=== PATIENT | male | born 1965 | race Caucasian/White ===

== ENCOUNTER 2022-07-06 05:52 | Outpatient (CLI) | payer BC, SELFPAY ==
--- NOTE | 2022-07-06 06:30 | US_ITS ---
WS: [id number] ULTRASOUND SOFT TISSUES LEFT knee HISTORY: T63.481A - Toxic effect of venom of other arthropod, COMPARISON: None available. TECHNIQUE: 2-D and color Doppler imaging is submitted. No abscess or focal collection. There is a thick walled superficial varicosity. There is still flow p resent. 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 May be chronic. No abscess.
== END 2022-07-06 05:53 | disposition home or self-care (01) ==
PROVIDERS: Visit Provider Nurse Practitioner Family
DX: T63.481A Toxic effect of venom of other arthropod, accidental (unintentional), initial encounter (principal); L03.90 Cellulitis, unspecified; I80.8 Phlebitis and thrombophlebitis of other sites
CPT/HCPCS: 76882

== ENCOUNTER → 2022-07-28 16:16 | Outpatient (BNVA) | payer BC, SELFPAY | PROVIDERS: PCP Nurse Practitioner Family; Visit Provider Nurse Practitioner Family | DX: R00.1 Bradycardia, unspecified (principal); Z12.5 Encounter for screening for malignant neoplasm of prostate | CPT/HCPCS: 80053; 80061; 82306; 82607; 83735; 84439; 84443; 85025; G0103 ==

== ENCOUNTER 2023-10-04 07:55 | Emergency (ER) | payer BC, SELFPAY ==
--- NOTE | 2023-10-04 07:58 | XR_ITS ---
WS: [id number] Portable AP upright chest, 10/04/2023 Clinical Data: dyspnea/cough Comparison: None. Findings: No nodules, masses or effusions are seen. The heart is enlarged. The pulmonary vascularity is not increased. No pneumonia or pneumothorax is seen. Monitor leads are on the chest wall. There is a levoscoliosis of the thoracic spine. Impression: Mild cardiomegaly.
--- NOTE | 2023-10-04 08:00 | ECG_ITS ---
[facility] Test Date: 2023-10-04 Pat Name: Charlie Nesbitt Department: Room: Gender: Male Wound/Ostomy Clinical Nurse Specialist: : 1965 Requested By: Edwar Rudd Order Number: [id number] Kareem MD: James Ulloa M.D. Measurements Intervals [place] Rate: 62 P: 68 [place]: 224 QRS: -5 QRSD: 92 T: 66 QT: 423 QTc: 431 Interpretive Statements SINUS RHYTHM WITH FIRST DEGREE AV BLOCK WITH FREQUENT SUPRAVENTRICULAR PREMATURE COMPLEXES SEPTAL MYOCARDIAL INFARCTION , PROBABLY OLD [40+ ms Q WAVE IN V1/V2] No previous ECG available for comparison Electronically Signed On 10-04-2023 17:39:47 FLAVORING MAKER by James Ulloa M.D. [email or web address] [email or web address] point mature adult care unitDeskwantedohiohealth grady memorial hospital.[employer]/store/NU/[id number]/[id number] f
[2023-10-04 08:02] VITALS: BP 157/85; PULSE 69; RESP 18; TEMP 36.9; O2SAT 98; BMI 27.2
--- NOTE | 2023-10-04 08:06 | ED_ITS ---
HPI - Chest Pain 2 General: Chief Complaint: Chest Pain Stated Complaint: chest pain and sob Time Seen by Provider: 10/04/23 07:58 Source: patient Mode of arrival: ambulatory History of Present Illness: 58-year-old male presents emergency room with complaint of chest pain began yesterday. This morning it was worse when he was working he did not have any radiation into his neck or arm may be a little bit into his back he felt more short of breath had no diaphoresis or nausea. He is intermittently had chest pain for the last couple of years he had a evaluation for bradycardia which denies any previous angiograms or stress test patient has not smoked does not have diabetes and has no family history of early coronary artery disease he is not currently having discomfort at this time. MD complaint: chest pain Onset (ago): day(s) (1) Timing of current episode: episodic Prior episodes: Yes Onset: during exertion Pain location: left chest Pain radiation: back Quality: aching and heaviness Relieving factors: nothing Exacerbating factors: exertion Associated symptoms: Reports dyspnea; Deny abdominal pain, diaphoresis, fever(s), leg edema, nausea, palpitations, sense of impending doom, syncope or vomiting Treatment prior to arrival: none Review of Systems 2 Const: Denies: fever(s), chills or diaphoresis Card: Reports: chest pain; Denies: palpitations or syncope Resp: Reports: dyspnea GI: Denies: abdominal pain, nausea or vomiting : Denies: dysuria, urinary frequency or urinary urgency Musc: Denies: neck pain or back pain Skin/Breast: Denies: rash PFSH ED 2 PFSH: Medical History PSVT (paroxysmal supraventricular tachycardia) PAC (premature atrial contraction) Venomous insect bite Infected wound Family History Other Diabetes Denies family history of Hyperlipidemia Myocardial infarction Hypertension Stroke Social History Smoking and tobacco/nicotine status: former use of tobacco/nicotine Quit status (tobacco/nicotine): has quit using Year quit tobacco: 37 YEARS AGO Second hand smoke exposure: Yes Alcohol intake: current Alcohol intake frequency: few times a month Alcohol type: beer Substance/Drug Use: never Household members: spouse Marital status: Legally service: No Current occupational status: employed 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 Physical Exam 2 Const: COMMON NORMALS: no acute distress GENERAL APPEARANCE: cooperative and comfortable ORIENTATION/CONSCIOUSNESS: Yes awake, Yes oriented to person, Yes oriented to place and Yes oriented to time HENMT: COMMON NORMALS: normocephalic, atraumatic and hearing grossly normal bilaterally HEAD & SCALP: normocephalic and atraumatic Resp: COMMON NORMALS: normal respiratory effort, No retractions, No use of accessory muscles and clear to auscultation bilaterally EFFORT & INSPECTION: Yes symmetric chest movement AUSCULTATION: clear to auscultation bilaterally Cardio: COMMON NORMALS: regular rate, regular rhythm and No murmurs present (Cardio) RATE: regular rate RHYTHM: regular rhythm GI: COMMON NORMALS: Soft to palpation and No hepatosplenomegaly present A USCULTATION: Yes normoactive bowel sounds PALPATION: Yes Soft to palpation, No Tenderness to palpation present (GI), No Guarding due to palpation present (GI) and Yes No hepatosplenomegaly present Extremity: COMMON NORMALS: normal to inspection, capillary refill normal, no clubbing, cyanosis or edema, no calf tenderness and no pedal edema Neuro: SENSORIUM/ORIENTATION: Yes oriented to person, Yes oriented to place and Yes oriented to time Skin: COMMON NORMALS: no rashes or lesions noted GENERAL SKIN EXAM: no rashes or lesions noted Course 2 Vital Signs: Vital signs: Vital Signs Temperature 98.4 F 10/04/23 08:02 Pulse Rate 59 L 10/04/23 11:17 Respiratory Rate 18 10/04/23 11:17 Blood Pressure 127/62 10/04/23 11:17 Pulse Oximetry 98 10/04/23 11:17 Oxygen Delivery Me thod Room Air 10/04/23 11:17 MDM - Chest Pain Medical Decision Making Patient has had any further chest pain EKG and cardiac enzymes negative. Will add isosorbide mononitrate baby aspirin daily and set up for outpatient graded exercise stress test return if has further problems. Medical Records I reviewed the patient's medical records. Lab Data I reviewed the patient's lab results. 10/04/23 08:11 10/04/23 08:11 Laboratory Results WBC 5.65 10^3/uL (3.29-11.43) 10/04/23 08:11 RBC 4.52 10^6/uL (3.85-5.65) 10/04/23 08:11 Hgb 14.50 g/dL (11.27-16.99) 10/04/23 08:11 Hct 43.1 % (37-53) 10/04/23 08:11 MCV 95.4 fl (82-101) 10/04/23 08:11 MCH 32.1 pg (27-33) 10/04/23 08:11 MCHC 33.6 g/dL (30-55) 10/04/23 08:11 RDW 11.4 % (12.1-15.1) L 10/04/23 08:11 Plt Count 218 10^3/cmm (157-399) 10/04/23 08:11 MPV 9.2 fL (7.4-10.4) 10/04/23 08:11 Neut % (Auto) 68.0 % 10/04/23 08:11 Lymph % (Auto) 20.2 % 10/04/23 08:11 Ward % (Auto) 9.0 % 10/04/23 08:11 Eos % (Auto) 1.9 % 10/04/23 08:11 Baso % (Auto) 0.7 % 10/04/23 08:11 Neut # (Auto) 3.84 10^3/uL (1.8-7.7) 10/04/23 08:11 Lymph # (Auto) 1.1 10^3/uL (0.8-4.8) 10/04/23 08:11 Ward # (Auto) 0.5 10^3/uL (0.2-0.9) 10/04/23 08:11 Eos # (Auto) 0.1 10^3/uL (0.0-0.8) 10/04/23 08:11 Baso # (Auto) 0.0 10^3/uL (0.0-0.1) 10/04/23 08:11 Nucleated RBC % (auto) 0 % 10/04/23 08:11 Nucleated RBCs # 0.0 /100WBC 10/04/23 08:11 Sodium 141 mmol/L (136-145) 10/04/23 08:11 Potassium 5.0 mmol/L (3.5-5.1) 10/04/23 08:11 Chloride 105 mmol/L (98-107) 10/04/23 08:11 Carbon Dioxide 28 mmol/L (22-29) 10/04/23 08:11 Anion Gap 13.0 (5-19) 10/04/23 08:11 BUN 18 mg/dL (6-20) 10/04/23 08:11 Creatinine 0.9 mg/dL (0.7-1.2) 10/04/23 08:11 GFR Calculation 86.4 mL/min (90-130) L 10/04/23 08:11 Glucose 109 mg/dL (65-115) 10/04/23 08:11 Calculated Osmolality 294 mOsm/kg (285-295) 10/04/23 08:11 Calcium 9.3 mg/dL (8.5-10.5) 10/04/23 08:11 Total Bilirubin 0.5 mg/dL (0.15-1.2) 10/04/23 08:11 AST 24 U/L (0-40) 10/04/23 08:11 ALT 31 U/L (0-41) 10/04/23 08:11 Alkaline Phosphatase 62 U/L (40-130) 10/04/23 08:11 Troponin T Baseline 10 ng/L (0-15) 10/04/23 08:11 Troponin T 120 Minute 8.42 ng/L (0-15) 10/04/23 10:00 Delta Troponin T -1.58 ABS# (0-10) L 10/04/23 10:00 Total Protein 6.9 g/dL (6.6-8.7) 10/04/23 08:11 Albumin 4.5 g/dL (3.5-5.2) 10/04/23 08:11 Globulin 2.4 g/dL (1.3-4.6) 10/04/23 08:11 Lipase 41 U/L (13-60) 10/04/23 08:11 Urine Color Straw (Yellow) 10/04/23 09:17 Urine Appearance Clear (CLEAR) 10/04/23 09:17 Urine pH 6 (5-7) 10/04/23 09:17 Ur Specific [place] 1.015 (1.005-1.030) 10/04/23 09:17 Urine Protein Neg (Negative) 10/04/23 09:17 Urine Glucose (UA) Norm (Normal) 10/04/23 09:17 Urine Ketones Negative (Negative) 10/04/23 09:17 Urine Blood Neg (Negative) 10/04/23 09:17 Urine Nitrate Negative (Negative) 10/04/23 09:17 Urine Bilirubin Neg (Negative) 10/04/23 09:17 Urine Urobilinogen Norm mg/dL (Negative) 10/04/23 09:17 Ur Leukocyte Esterase Negative (Negative) 10/04/23 09:17 All radiology interpretation(s) finalized by discharge Discharge Plan Discharge Patient Disposition: Home Clinical Impression: Atypical chest pain Condition: Stable Prescriptions: New isosorbide mononitrate 30 mg tablet extended release 24 hr 30 mg PO DAILY Qty: 30 0RF aspirin 81 mg tablet,delayed release (DR/EC) 81 mg PO DAILY Qty: 30 0RF No Action metoprolol tartrate 25 mg tablet 12.5 mg PO BID Qty: 90 3RF multivitamin Tablet 1 tab PO QAM Vitamin B-12 1,000 mcg Tablet 1,000 mcg PO QAM Vitamin D3 25 mcg (1,000 unit) Tablet 25 mcg PO QAM Discharge Orders: Discharge ED (Routine); Ordered 10/04/23 Ordered By: Edwar Fitzgerald Referrals: Nancy Yen FNP [Primary Care Provider] - Discharge Diet: Usual diet Patient Instructions: Opioid Safety, Pain Management Activity Restrictions/Additional Instructions: Thank you for choosing [facility] for your healthcare needs today. Please realize this is an emergency room and that we are providing you with a medical screening exam and this may not be complete and all inclusive of all the testing and or work up that you may need to determine your ailment or severity of your illness. It is very important that you follow up as instructed or that you return to the Emergency Department should you have concerns or if your condition changes or worsens in any way. Coding Level of Care Code ED Signal Processing Engineer for Jennifer Salmon
[2023-10-04 08:18] LABS: Basophils % 0.7 %; Eosinophils # 0.1 10^3/uL (0.0-0.8); Eosinophils % 1.9 %; Hematocrit 43.1 % (37-53); Lymphocytes # 1.1 10^3/uL (0.8-4.8); Lymphocytes % 20.2 %; Mean Corpuscular HGB Conc 33.6 g/dL (30-55); Mean Corpuscular Hemoglobin 32.1 pg (27-33); Mean Corpuscular Volume 95.4 fl (82-101); Mean Platelet Volume 9.2 fL (7.4-10.4); Monocytes # 0.5 10^3/uL (0.2-0.9); Neutrophils # 3.84 10^3/uL (1.8-7.7); Nucleated Red Blood Cells % 0 %; Platelet Count 218 10^3/cmm (157-399); Red Blood Count 4.52 10^6/uL (3.85-5.65); Red Cell Distribution Width 11.4 % (12.1-15.1); White Blood Count 5.65 10^3/uL (3.29-11.43)
[2023-10-04] MEDS: aspirin 81 mg Chew Tablet 324 MG PO (08:24)
[2023-10-04 08:54] LABS: Troponin(5th) Baseline 10 ng/L (0-15)
[2023-10-04 08:58] LABS: Alanine Aminotransferase 31 U/L (0-41); Albumin Level 4.5 g/dL (3.5-5.2); Alkaline Phosphatase 62 U/L (40-130); Aspartate Amino Transferase 24 U/L (0-40); Blood Urea Nitrogen 18 mg/dL (6-20); Calcium 9.3 mg/dL (8.5-10.5); Carbon Dioxide 28 mmol/L (22-29); Chloride 105 mmol/L (98-107); Globulin 2.4 g/dL (1.3-4.6); Glomerular Filtration Rate 86.4 mL/min (90-130); Glucose 109 mg/dL (65-115); Lipase 41 U/L (13-60); Osmolality Calculated 294 mOsm/kg (285-295); Sodium 141 mmol/L (136-145); Total Bilirubin 0.5 mg/dL (0.15-1.2); Total Protein 6.9 g/dL (6.6-8.7)
[2023-10-04 09:51] LABS: Add Urine Microscopic? NO; Charge for UA Resulting for Rev
[2023-10-04 09:53] VITALS: BP 138/71; PULSE 59; RESP 15; O2SAT 97
--- NOTE | 2023-10-04 09:59 | ECG_ITS ---
[facility] Test Date: 2023-10-04 Pat Name: Charlie Nesbitt Department: Room: Gender: Male Creel Hand: : 1965 Requested By: Edwar Rudd Order Number: [id number] Kareem MD: James Ulloa M.D. Measurements Intervals [place] Rate: 57 P: 53 SD: 229 QRS: -17 QRSD: 92 T: 60 QT: 433 QTc: 423 Interpretive Statements Sinus bradycardia with first-degree AV block. Frequent supraventricular ectopics SEPTAL MYOCARDIAL INFARCTION , OF INDETERMINATE AGE [40+ ms Q WAVE IN V1/V2] No previous ECG available for comparison Electronically Signed On 10-04-2023 17:48:25 DIESEL ENGINEER by James Ulloa M.D. [id number]
[2023-10-04 10:46] LABS: Troponin 5 2HR 8.42 ng/L (0-15)
[2023-10-04 10:49] LABS: Bilirubin Urine Neg (Negative); Blood Urine Neg (Negative); Glucose Urine UA Norm (Normal); Ketones Urine Negative (Negative); Nitrate Urine Negative (Negative); Protein Urine Neg (Negative); Specific Gravity, Urine 1.015 (1.005-1.030); Urine Appearance Clear (CLEAR); Urine Color Straw (Yellow); pH Urine 6 (5-7)
[2023-10-04 10:50] LABS: Leukocyte Esterase Urine Negative (Negative); Urobilinogen Urine Norm (Negative)
[2023-10-04 10:50] LABS: Troponin 5 2HR Delta -1.58 ABS# (0-10)
[2023-10-04 11:17] VITALS: BP 127/62; PULSE 59; RESP 18; O2SAT 98
--- NOTE | 2023-10-05 07:49 | DCPLANNER ---
Faxed to Centralized Scheduling for a Treadmill Stress test [id number]
== END 2023-10-04 11:58 | disposition home or self-care (01) ==
PROVIDERS: Emergency Provider Family Medicine; PCP Nurse Practitioner Family
DX: R07.89 Other chest pain (principal); Z87.891 Personal history of nicotine dependence
CPT/HCPCS: 36415; 71045; 80053; 81003; 83690; 84484; 85025; 93005; 99285

== ENCOUNTER 2023-10-08 12:18 | Outpatient (CLI) | payer BC, SELFPAY ==
--- NOTE | 2023-10-08 | ECG_ITS ---
[facility] Test Date: 2023-10-08 Pat Name: Charlie Nesbitt Department: Room: Gender: Male Cosmetic Account Coordinator: Whitney Wolf : 1965 Requested By: Edwar Rudd Order Number: [id number] Kareem MD: James Ulloa M.D. Interpretive Statements NAME OF STUDY: TREADMILL STRESS TEST INDICATION: Chest Pain, O2 SATURATION 94-96% THROUGHOUT TESTING. PROCEDURE: At the baseline, the patient's blood pressure was 131/90 with a heart rate of 69. The baseline electrocardiogram showed normal sinus rhythm with normal ST-Ts.. The patient exercised for 12 minutes and 39 seconds on a standard Gray protocol. Patient attained a maximum heart rate of 140 beats per minute(89% of the maximum predicted heart rate) with a blood pressure at the peak exercise of 165/80 mm Hg. The EKG at the peak exercise revealed frequent supraventricular ectopics with no significant ST-T changes. Patient did [not have any chest pain with the peak exercise During the recovery phase, there were no new changes. Continued to have frequent sublingual ectopics in the form of bigeminy Blood pressure at the end of the recovery phase was 148/76 mm Hg with a heart rate of 84 per minute. CONCLUSION: 1. Normal EKG response to treadmill exercise 2. No exercise-induced chest pain 3. Exercise-induced frequent supraventricular ectopics in the form of isolated beats and bigeminies 3. Good exercise tolerance, attained a maximum of 17.2 METs Electronically Signed On 10-18-2023 17:29:05 MANAGER OPERATING by James Ulloa M.D. [id number]
[2023-10-08 12:49] VITALS: BMI 27.9
[2023-10-08 13:30] VITALS: BP 148/76; PULSE 83
== END 2023-10-08 12:19 | disposition home or self-care (01) ==
PROVIDERS: PCP Nurse Practitioner Family; Visit Provider Family Medicine
DX: R07.89 Other chest pain (principal)
CPT/HCPCS: 93017

== ENCOUNTER → 2024-04-12 16:38 | Outpatient (BNVA) | payer BC, SELFPAY | PROVIDERS: PCP Nurse Practitioner Family; Visit Provider Nurse Practitioner Family | DX: M25.50 Pain in unspecified joint (principal) | CPT/HCPCS: 80053; 82607; 83735; 84443; 84550; 85025; 85651; 86038; 86140; 86200; 86431 ==

== ENCOUNTER → 2025-07-24 10:54 | Outpatient (BNVA) | payer BC, SELFPAY | PROVIDERS: PCP Nurse Practitioner Family; Visit Provider Nurse Practitioner Family | DX: Z00.00 Encounter for general adult medical examination without abnormal findings (principal); Z12.5 Encounter for screening for malignant neoplasm of prostate; M25.541 Pain in joints of right hand; M25.542 Pain in joints of left hand | CPT/HCPCS: 80053; 80061; 82306; 82607; 83735; 84443; 84550; 85651; 86140; 86160; 86162; 86200; 86235; 86255; 86376; 86431; G0103 ==

== ENCOUNTER 2025-08-08 08:13 | Emergency (ER) | payer BC, OTHER, SELFPAY ==
[2025-08-08 08:27] VITALS: BP 176/86; PULSE 67; RESP 16; TEMP 36.6; O2SAT 99; BMI 25.1
[2025-08-08 08:39] LABS: Glucose Urine UA Negative (Normal); Nitrate Urine Negative (Negative); Specific Gravity, Urine 1.021 (1.005-1.030)
[2025-08-08 08:41] LABS: Add Urine Microscopic? YES
[2025-08-08 08:41] LABS: Hematocrit 41.9 % (37-53); Hemoglobin 14.10 g/dL (11.27-16.99); Mean Corpuscular HGB Conc 33.7 g/dL (30-55); Mean Corpuscular Hemoglobin 31.5 pg (27-33); Mean Corpuscular Volume 93.5 fl (82-101); Nucleated Red Blood Cells % 0 %; Platelet Count 217 10^3/cmm (157-399); Red Blood Count 4.48 10^6/uL (3.85-5.65); White Blood Count 5.91 10^3/uL (3.29-11.43)
--- NOTE | 2025-08-08 08:44 | W.ED.BACK ---
HPI - Back Pain/Injury General: Chief Complaint: Back Pain/Injury Stated Complaint: lower back L side pain, trouble urinating Time Seen by Provider: 08/08/25 08:29 History of Present Illness: 59-year-old male presents emergency room going left lower back pain difficulty with urination. he has a history of kidney stones in the past. Has not had any fever sweats chills no dysuria urgency or frequency severe left-sided flank pain radiating into the groin. No recent back injury or falls. He has not noted any hematuria. Associated symptoms: Deny abdominal pain, chills, dysuria, fever(s) or urinary urgency Related Data Previous Rx's ?Medication ?Instructions ?Recorded meloxicam 15 mg tablet 15 mg PO DAILY #30 tabs 07/24/25 hydrocodone 5 mg-acetaminophen 325 1 tab PO Q6H PRN pain #15 tabs 08/08/25 mg tablet promethazine 25 mg tablet 25 mg PO Q6H PRN nausea and 08/08/25 vomiting #20 tabs tamsulosin 0.4 mg capsule 0.4 mg PO DAILY #10 caps 08/08/25 Allergies Allergy/AdvReac Type Severity Reaction Status Date / Time No Known Allergies Allergy Verified 07/24/25 08:48 Review of Systems Const: Denies: fever(s) or chills Card: Denies: chest pain Resp: Denies: dyspnea GI: Denies: abdominal pain : Denies: dysuria, urinary frequency or urinary urgency Musc: Reports: back pain; Denies: neck pain Skin/Breast: Denies: rash PFS ED PFSH: Medical History PSVT (paroxysmal supraventricular tachycardia) PAC (premature atrial contraction) Venomous insect bite Infected wound Family History Other Diabetes Denies family history of Hyperlipidemia Myocardial infarction Hypertension Stroke Social History Smoking and tobacco/nicotine status: former use of tobacco/nicotine Quit status (tobacco/nicotine): has quit using Year quit tobacco: 37 YEARS AGO Second hand smoke exposure: Yes Alcohol intake: current Alcohol intake frequency: few times a month Alcohol type: beer Substance/Drug Use: never Household members: spouse Marital status: Legally service: No Current occupational status: employed 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 Physical Exam Const: COMMON NORMALS: no acute distress GENERAL APPEARANCE: cooperative and comfortable ORIENTATION/CONSCIOUSNESS: Yes awake, Yes oriented to person, Yes oriented to place and Yes oriented to time HENMT: COMMON NORMALS: normocephalic, atraumatic and hearing grossly normal bilaterally HEAD & SCALP: normocephalic and atraumatic Resp: COMMON NORMALS: normal respiratory effort, No retractions, No use of accessory muscles and clear to auscultation bilaterally AUSCULTATION: clear to auscultation bilaterally Cardio: COMMON NORMALS: regular rate, regular rhythm and No murmurs present (Cardio) RATE: regular rate RHYTHM: regular rhythm GI: COMMON NORMALS: Soft to palpation and No hepatosplenomegaly present AUSCULTATION: Yes normoactive bowel sounds PALPATION: Yes Soft to palpation, No Tenderness to palpation present (GI), No Guarding due to palpation present (GI) and Yes No hepatosplenomegaly present : BLADDER/KIDNEY EXAM: Yes CVA tenderness on the left Back/Pelvis: GENERAL BACK: Yes CVA tenderness CVA tenderness: left Extremity: COMMON NORMALS: normal to inspection, capillary refill normal, no clubbing, cyanosis or edema, no calf tenderness and no pedal edema Neuro: SENSORIUM/ORIENTATION: Yes oriented to person, Yes oriented to place and Yes oriented to time Skin: COMMON NORMALS: no rashes or lesions noted GENERAL SKIN EXAM: no rashes or lesions noted Course Vital Signs: Vital signs: Vital Signs Temperature 97.9 F 08/08/25 08:27 Pulse Rate 59 L 08/08/25 10:01 Respiratory Rate 16 08/08/25 08:27 Blood Pressure 146/71 08/08/25 10:01 Pulse Oximetry 98 08/08/25 10:01 Oxygen Delivery Me thod Room Air 08/08/25 08:27 MDM - Back Pain/Injury Medical Decision Making Patient initially seen differential diagnose because nephrolithiasis urinary retention cystitis pyelonephritis musculoskeletal back pain. No leukocytosis urine shows microscopic hematuria CT confirms left nephrolithiasis 2.7 mm. No signs of cystitis on urine. No other findings on CT Will discharge home with hydrocodone tamsulosin promethazine and referral to urology strain urine. Medical Records I reviewed the patient's medical records. Labs I reviewed the patient's lab results. 08/08/25 08:33 08/08/25 08:33 Radiology Impressions Abdomen/Pelvis CT 08/08/25 08:48 IMPRESSION: 1. Obstructing 2.7 mm distal LEFT ureteral calculus just proximal to the UVJ. Mild LEFT hydronephrosis. Perinephric stranding about the LEFT kidney. Mild LEFT pelvicaliectasis and ureterectasis. 2. Suspected gastritis 3. Small esophageal hiatal hernia 4. No other acute findings Notified Edwar Fitzgerald DO at 08/08/2025 9:43 AM. Laboratory Results WBC 5.91 10^3/uL (3.29-11.43) 08/08/25 08:33 RBC 4.48 10^6/uL (3.85-5.65) 08/08/25 08:33 Hgb 14.10 g/dL (11.27-16.99) 08/08/25 08:33 Hct 41.9 % (37-53) 08/08/25 08:33 MCV 93.5 fl (82-101) 08/08/25 08:33 MCH 31.5 pg (27-33) 08/08/25 08:33 MCHC 33.7 g/dL (30-55) 08/08/25 08:33 RDW 11.8 % (12.1-15.1) L 08/08/25 08:33 Plt Count 217 10^3/cmm (157-399) 08/08/25 08:33 MPV 9.6 fL (7.4-10.4) 08/08/25 08:33 Neut % (Auto) 63.6 % 08/08/25 08:33 Lymph % (Auto) 24.7 % 08/08/25 08:33 [place] % (Auto) 9.3 % 08/08/25 08:33 Eos % (Auto) 1.4 % 08/08/25 08:33 Baso % (Auto) 0.8 % 08/08/25 08:33 Neut # (Auto) 3.76 10^3/uL (1.8-7.7) 08/08/25 08:33 Lymph # (Auto) 1.5 10^3/uL (0.8-4.8) 08/08/25 08:33 Bound[place] # (Auto) 0.6 10^3/uL (0.2-0.9) 08/08/25 08:33 Eos # (Auto) 0.1 10^3/uL (0.0-0.8) 08/08/25 08:33 Baso # (Auto) 0.1 10^3/uL (0.0-0.1) 08/08/25 08:33 Nucleated RBC % (auto) 0 % 08/08/25 08:33 Nucleated RBCs # 0.0 /100WBC 08/08/25 08:33 Sodium 141 mmol/L (136-145) 08/08/25 08:33 Potassium 4.4 mmol/L (3.5-5.1) 08/08/25 08:33 Chloride 103 mmol/L (98-107) 08/08/25 08:33 Carbon Dioxide 25 mmol/L (22-29) 08/08/25 08:33 Anion Gap 17.4 (5-19) 08/08/25 08:33 BUN 21 mg/dL (8-23) 08/08/25 08:33 Creatinine 1.1 mg/dL (0.7-1.2) 08/08/25 08:33 GFR Calculation 68.3 mL/min (90-130) L 08/08/25 08: Glucose 120 mg/dL (65-115) H 08/08/25 08:33 Calculated Osmolality 296 mOsm/kg (285-295) H 08/08/25 08:33 Calcium 8.9 mg/dL (8.5-10.5) 08/08/25 08:33 Urine Color Yellow (Yellow) 08/08/25 08:26 Urine Appearance Clear (CLEAR) 08/08/25 08: Urine pH 5.0 (5-7) 08/08/25 08: Ur Specific [place] 1.021 (1.005-1.030) 08/08/25: Urine Protein Negative (Negative) 08/08/25 08: Urine Glucose (UA) Negative (Normal) 08/08/25 08: Urine Ketones Trace (Negative) 08/08/25 08: Urine Blood 1+ (Negative) A 08/08/25: Urine Nitrate Negative (Negative) 08/08/25 08:26 Urine Bilirubin Negative (Negative) 08/08/25 08:26 Urine Urobilinogen 1.0 mg/dL (Negative) 08/08/25 08:26 Ur Leukocyte Esterase Negative (Negative) 08/08/25 08:26 Urine RBC 11-20 /hpf (0-2) H 08/08/25 08:26 Urine WBC 0-5 /hpf (0-5) 08/08/25 08:26 Ur Squamous Epith Cells 0-5 /hpf (0-5) 08/08/25 08:26 Amorphous Sediment Not Reportable 08/08/25 08:26 Urine Bacteria None seen /hpf (NONE) 08/08/25 08:26 Hyaline Casts 0.40 /lpf 08/08/25 08:26 All radiology interpretation(s) finalized by discharge Discharge Plan Discharge Patient Disposition: Home Clinical Impression: Left nephrolithiasis Condition: Stable Prescriptions: New hydrocodone-acetaminophen 5-325 mg tablet 1 tab PO Q6H PRN (Reason: pain) Qty: 15 0RF promethazine 25 mg tablet 25 mg PO Q6H PRN (Reason: nausea and vomiting) Qty: 20 0RF tamsulosin 0.4 mg capsule 0.4 mg PO DAILY Qty: 10 0RF No Action meloxicam 15 mg tablet 15 mg PO DAILY Qty: 30 0RF Discharge Orders: Discharge ED (Routine); Ordered 08/08/25 Ordered By: Edwar Fitzgerald Referrals: Nancy Yen FNP [Primary Care Provider, Family Practice] Discharge Diet: Usual diet Discharge Activity: Increase activity as tolerated Patient Instructions: Opioid Safety, Pain Management, Patient Portal & Artemio Instructions Activity Restrictions/Additional Instructions: [facility]. It is very important that you follow up as instructed or that you return to the Emergency Department should you have concerns or if your condition changes or worsens in any way. Emergency department visits are focused on emergent conditions, in some cases you may require further evaluation on an outpatient basis. You were seen in the emergency room with complaint of left flank pain. On evaluation you are found to have a kidney stone. The stone is about a drop in your bladder it is 2.7 mm stones under 5 mm are likely to pass on their own. You are given medications to help pass the stone (tamsulosin). You are also given medications for pain and nausea hydrocodone and promethazine to use as needed. You should strain your urine to collect a stone telephonic nurse case manager will make arrangements for you to follow-up with urology. If your pain becomes uncontrolled return to the emergency room. You should not return to work until your pain is controlled without the use of the hydrocodone. (Please note that included in your discharge packet is information concerning opioid safety and pain management. This information is given to all patients were discharged from the ER regardless of their discharge diagnosis or the medicines they usually take or are prescribed.) Print Language: Haitian Coding Level of Care Code ED Veterinary Milk Specialist for Jennifer Salmon
--- NOTE | 2025-08-08 08:48 | CT_ITS ---
WS: [id number] CT ABDOMEN PELVIS TECHNIQUE: Noncontrast CT of the abdomen and pelvis with coronal and sagittal reformatted images. CLINICAL INFORMATION: flank pain/hematuria COMPARISON: None. DLP: 528.[address] scans at [facility] use at least one of these dose optimization techniques: automated exposure control; mA and/or kV adjustment per patient size (includes targeted exams where dose is matched to clinical indication); or iterative reconstruction. FINDINGS: Obstructing 2.7 mm distal LEFT ureteral calculus. Mild LEFT hydronephrosis. Perinephric stranding about the LEFT kidney. Mild LEFT pelvicaliectasis and ureterectasis. No obstructing RIGHT renal or ureteral calculi. Non obstructing tiny calyceal tip calculi bilaterally. Noncontrast liver and spleen are normal. Small esophageal hiatal hernia. Mild gastric rugal thickening can be seen with gastritis. Adrenal glands are normal. Noncontrast pancreas is normal. Normal caliber abdominal aorta. Normal sigmoid colon. Normal appendix. [place] fat-containing umbilical hernia. Normal caliber abdominal aorta. CT/CT kidney stone [id number] IMPRESSION: 1. Obstructing 2.7 mm distal LEFT ureteral calculus just proximal to the UVJ. Mild LEFT hydronephrosis. Perinephric stranding about the LEFT kidney. Mild LE FT pelvicaliectasis and ureterectasis. 2. Suspected gastritis 3. Small esophageal hiatal hernia 4. No other acute findings Notified Edwar Fitzgerald DO at 08/08/2025 9:43 AM.
[2025-08-08 08:57] LABS: Anion Gap 17.4 (5-19); Blood Urea Nitrogen 21 mg/dL (8-23); Calcium 8.9 mg/dL (8.5-10.5); Carbon Dioxide 25 mmol/L (22-29); Chloride 103 mmol/L (98-107); Creatinine Clr Calc Pharmacy 76.3147; Glucose 120 mg/dL (65-115); Osmolality Calculated 296 mOsm/kg (285-295); Potassium 4.4 mmol/L (3.5-5.1); Sodium 141 mmol/L (136-145)
[2025-08-08] MEDS: ondansetron 2 mg/ML SDV 2 mL 4 MG IVP (09:05)
[2025-08-08] MEDS: morphine 4 mg/mL SDV 1 mL IVP (09:05)
[2025-08-08 10:01] VITALS: BP 146/71; PULSE 59; O2SAT 98
== END 2025-08-08 10:04 | disposition home or self-care (01) ==
PROVIDERS: Emergency Provider Family Medicine; PCP Nurse Practitioner Family
DX: N20.0 Calculus of kidney (principal); Z87.442 Personal history of urinary calculi; Z87.891 Personal history of nicotine dependence
CPT/HCPCS: 36415; 51798; 74176; 80048; 81001; 85025; 96374; 96375; 99285; J1885; J2270; J2405; J7030